=== PATIENT | female | born 1995 | race Caucasian/White ===

== ENCOUNTER 2021-04-17 07:48 | Emergency (ER) | payer MEDICAID ==
[~2021-04-17] VITALS: Ht 154.9 cm; Wt 59.9 kg
[2021-04-17] MEDS ORDERED: PREDNISONE 10 M10 MG PO (08:49)
[2021-04-17] MEDS ORDERED: KEPPRA750 MG PO (08:49)
[2021-04-17] MEDS ORDERED: PROAIR HFA8.5 GM INH (08:50)
[2021-04-17] MEDS ORDERED: CYCLOSPORINE25 MG PO (08:50)
[2021-04-17] MEDS ORDERED: DESYREL150 MG PO (08:50)
[2021-04-17] MEDS ORDERED: DIPHENHIST50 MG PO (08:51)
[2021-04-17 09:33] LABS: URINE BILIRUBIN NEGATIVE (Negative); URINE BLOOD 1+ (Negative); URINE CLARITY SL CLOUDY; URINE COLOR YELLOW; URINE GLUCOSE-RANDOM NEGATIVE (Negative); URINE KETONES NEGATIVE (Negative); URINE LEUKOCYTES 2+ (Negative); URINE NITRITE NEGATIVE (Negative); URINE NITRITE-REFLEX NEGATIVE (Negative); URINE PROTEIN NEGATIVE (Negative); URINE UROBILINOGEN 0.2 E.U./dl (0.2-1.0)
[2021-04-17 09:34] LABS: URINE LEUKOCYTES-REFLEX 2+ (Negative)
[2021-04-17 09:38] LABS: BACTERIA >30 Many /HPF (None Seen); MUCUS 0-3 Light strn/LPF (None Seen); SQUAMOUS 4-10 Moderate /LPF (0-3); URINE RBC None Seen /HPF (0-2)
[2021-04-17 09:39] LABS: CASTS None Seen /LPF (None Seen); CRYSTALS None Seen /LPF (None Seen)
[2021-04-17 10:32] LABS: BACTERIA-REFLEX >30 Many /HPF (None Seen)
[2021-04-17 10:47] LABS: HEMATOCRIT 39.4 % (37.0-47.0); HEMOGLOBIN 13.3 gm/dL (12.0-15.0); MCH 32.1 pg (26.0-34.0); MCHC 33.8 g/dL (28.0-37.0); MPV 7.6 fl. (7.2-11.1); RBC 4.15 mil/uL (4.20-5.00); RDW-CV 13.9 % (10.5-14.5); WBC 7.2 thou/uL (4.0-11.0)
[2021-04-17 11:01] LABS: CALCIUM 8.8 mg/dL (8.5-10.1); CREATININE 1.1 mg/dL (0.6-1.3); POTASSIUM 3.9 mmol/L (3.5-5.1)
[2021-04-17 11:06] LABS: TOTAL BILIRUBIN 0.7 mg/dL (<0.1-1.0); TOTAL PROTEIN 7.5 g/dL (6.4-8.2)
[2021-04-17 18:29] VITALS: BP 108/64
== END 2021-04-17 18:31 | disposition short-term general hospital (02) ==
LOC: M.ERS 07:48
PROVIDERS: Emergency Medicine Emergency Medical Services; Physician Assistant
DX: N10 Acute pyelonephritis (principal); Z20.822 Contact with and (suspected) exposure to COVID-19; R10.31 Right lower quadrant pain; Z94.0 Kidney transplant status; Z94.4 Liver transplant status; Z79.51 Long term (current) use of inhaled steroids; Z79.899 Other long term (current) drug therapy; Z88.1 Allergy status to other antibiotic agents; Z88.2 Allergy status to sulfonamides; Z91.041 Radiographic dye allergy status